=== PATIENT | male | born 1965 | race Caucasian/White ===

== ENCOUNTER 2019-02-28 12:40 | Observation (INO) ==
[2019-02-28 13:20] LABS: Hematocrit (blood only) 41.8 % (42-52); Hemoglobin 14.3 g/dL (14.0-18.0); Immature Granulocytes # (auto) 0.02 K/uL (0.00-0.02); Immature Granulocytes % (auto) 0.1 %; Lymphocytes # (auto) 1.02 K/uL (1.2-3.4); Lymphocytes % (auto) 7.5 %; Mean Corpuscular Hgb Conc 34.2 g/dL (32-36); Mean Corpuscular Volume 89.3 fL (80-100); Mean Platelet Volume 9.5 fL (7.4-10.4); Monocytes # (auto) 0.77 K/uL (0.11-0.59); Monocytes % (auto) 5.7 %; Neutrophils # (auto) 11.73 K/uL (1.4-6.5); Neutrophils % (auto) 86.7 %; Platelet Count 220 K/uL (130-400); RDW Coefficient of Variation 13.2 % (11.5-14.5); RDW Standard Deviation 43.2 fL (36.4-46.3); Red Blood Count 4.68 M/uL (4.7-6.1); White Blood Count 13.54 K/uL (4.8-10.8)
[2019-02-28 13:35] LABS: Albumin Level 3.9 gm/dl (3.4-5.0); BUN Creatinine Ratio 25.2 (10-20); Calcium 9.1 mg/dl (8.5-10.1); Est GFR (African American) 118.7; Est GFR (Non-African American) 102.4; Potassium 4.3 mmol/L (3.5-5.1)
[2019-02-28 13:37] LABS: Albumin Globulin Ratio 1.2 (0.9-2); Bilirubin,Total 0.6 mg/dl (0.2-1); Globulin 3.3 gm/dl (2.5-4.0); Total Protein 7.2 gm/dl (6.4-8.2)
[2019-02-28] MEDS ORDERED: SODIUM CHLORIDE 0.9% 1000ML 1,000 ML IV ONE (13:44)
[2019-02-28] MEDS ORDERED: cefOXitin 2,000 MG/60 ML BAG IV STA (13:44)
--- NOTE | 2019-02-28 14:12 | Anesthesiology Consultation ---
Date of Service February 28, 2019 Assessment & Plan Chart Review Chart Review: Acceptable Risk for Surgery and Patient NOT seen in Pre Admission Testing Consults Requested none ASA ASA2E Proposed Anesthesia Anesthesia Type: General Risk / Benefits Reviewed With: PT / POA / Parent / Guardian, Accepts Plan and Informed Consent Obtained History Surgery Operation Date: 02/28/19 15:15 Proposed Procedures p Laparoscopic Appendectomy - Ramon Delatorre MD Height/Weight Height: 1.78 m Weight: 77 kg Allergies Allergy/AdvReac Type Severity Reaction Status Date / Time No Known Allergies Allergy Mild Unverified 02/28/19 13:28 Medications Home Medications Medication Instructions Recorded Confirmed Last Taken No Known Home Medications 02/28/19 02/28/19 Unknown NPO Date Last Intake of Fluids: 02/27/19 Time Last Intake of Fluids: 23:00 Last Intake of Fluids Comment: CT contrast @ 11am today Date Last Intake of Solids: 02/27/19 Time Last Intake of Solids: 23:00 Past Medical History Medical History No known health problems Exercise / Class Metabolic Activity II 4-5 Yardwork/Stairs/Walk up hill Past Family History Family History Other No significant family history Past Surgical History Surgical History H/O dental orthodoxy H/O knee surgery Patella repair on the right S/P vasectomy Past Anesthesia History No Hx of Anesthesia Complications and No Family Hx of Anesthesia Complications History of PONV No Hx of PONV and No Hx of Motion Sickness Social History Smoking Status: Never smoker Do You Dip or Chew Tobacco: No Hx Alcohol Use: Yes Alcohol type: beer alcohol intake frequency: a few times a week Hx Substance Use: No Review of Systems Respiratory: no cough and no dyspnea Cardiovascular: no chest pain and no dyspnea on exertion Gastrointestinal: + nausea and + vomiting; no heartburn Physical Exam Vital Signs Last Vital Signs Temp 36.7 C 02/28/19 12:48 Pulse 63 02/28/19 14:38 Resp 19 02/28/19 14:38 BP 101/65 02/28/19 14:38 Pulse Ox 96 02/28/19 14:00 ENMT Mouth: no TMJ abnormality and no TMJ clicking Thyromental Distance: > or= 3.5 Finger Breadths Mallampati Class: II Mouth / Teeth: 1. Broken Neck normal visual inspection; neck extension not limited Respiratory Auscultation: lungs clear to auscultation bilaterally Cardiovascular Rate/Rhythm: regular rate and regular rhythm Psychiatric Orientation: alert and oriented x 3 Testing Laboratory Results 02/28/19 13:07 02/28/19 13:07 Urine Color Yellow 02/28/19 14:15 Urine Appearance Clear (Clear) 02/28/19 14:15 Urine pH 7.5 (4.5-7.5) 02/28/19 14:15 Ur Specific [place] > 1.045 (1.000-1.030) H 02/28/19 14:15 Urine Protein Negative (Negative) 02/28/19 14:15 Urine Glucose (UA) Negative (Negative) 02/28/19 14:15 Urine Ketones Negative (Negative) 02/28/19 14:15 Urine Nitrite Negative (Negative) 02/28/19 14:15 Ur Leukocyte Esterase Negative (Negative) 02/28/19 14:15
[2019-02-28] MEDS ORDERED: cefOXitin 2,000 MG in DEXTROSE 5% 50 ML IV STA (14:17)
--- NOTE | 2019-02-28 14:17 | Surgery Consultation ---
Date of Consultation February 28, 2019 Assessment & Plan (1) Appendicitis: pt is a 53 year-old male who presents to ER with one day history acute abdominal pain, CT scan dx acute appendicitis Plan, I recommend to do laparoscopic appendectomy, possible open, D/W benefits, risks nad alternatives of the surgery, the risks - infection, bleeding, abscess, injury bowel, SC, DVT, , pt understood, he agrees with the surgery, I answered all questions, History of Present Illness History of Present Illness CC: abdominal pain HPI: pt is a 53 year-old male who presents to ER with one day history abdominal pain with nausea , the pain is located at RLQ area, pt denies fever, no diarrhea, pt had CT scan at outside hospital. Dx acute appendicitis, Allergies Allergy/AdvReac Type Severity Reaction Status Date / Time No Known Allergies Allergy Mild Unverified 02/28/19 13:28 Home Medications Home Medications Medication Instructions Recorded Confirmed Type No Known Home Medications 02/28/19 02/28/19 History Patient History Medical History No known health problems Family History Other No significant family history Social History marital status: Current Living Situation: Spouse current occupational status: employed Feels Safe at Home: Yes Smoking Status: Never smoker Review of Systems Constitutional: as per Subjective / HPI Ear, Nose, Mouth, Throat: as per Subjective / HPI Respiratory: as per Subjective / HPI Cardiovascular: as per Subjective / HPI Gastrointestinal: as per Subjective / HPI Genitourinary: + as per Subjective / HPI Integumentary: as per Subjective / HPI Neurologic: as per Subjective / HPI Psychiatric: as per Subjective / HPI Endocrine: as per Subjective / HPI Hematologic / Lymphatic: as per Subjective / HPI Physical Exam Constitutional: WD/WN, vitals as above well developed and well nourished ENMT: external ear and nose normal, oropharynx normal Neck: trachea midline, no thyromegaly Respiratory: normal respiratory effort, lungs clear to auscultation normal respiratory effort Cardiovascular: RRR, no murmur, no edema Rate/Rhythm: regular rate and regular rhythm Heart Sounds: normal S1 and normal S2 Gastrointestinal (Abdomen): soft, tenderness at RLQ, no rebound pain, BS + Musculoskeletal: no cyanosis or clubbing, extremities motor strength 5/5 Neurologic: patellar DTR's 2+ bilat, sensation intact Psychiatric: A+Ox3, euthymic affect Orientation: alert and oriented x 3 Lymphatic: no cervical or axillary lymphadenopathy Results & Data Vital Signs (Past 12 Hours) Vital Signs Temp Pulse Pulse Resp BP BP Pulse Ox 02/28/19 13:20 69 24 116/66 96 02/28/19 12:48 36.7 C 71 16 109/71 96 Laboratory Results Abnormal lab results 02/28/19 02/28/19 Range/Units 13:07 13:07 WBC 13.54 H (4.8-10.8) K/uL RBC 4.68 L (4.7-6.1) M/uL Hct 41.8 L (42-52) % Neut # (Auto) 11.73 H (1.4-6.5) K/uL Lymph # (Auto) 1.02 L (1.2-3.4) K/uL [place] # (Auto) 0.77 H (0.11-0.59) K/uL BUN 21 H (7-18) mg/dl BUN/Creatinine Ratio 25.2 H (10-20) Glucose 121 H (70-99) mg/dl (1) Appendicitis Appendicitis type: unspecified Qualified Code(s): K37 - Unspecified appendicitis
--- NOTE | 2019-02-28 14:17 | History & Physical Bridge Note ---
Date of Service February 28, 2019 History & Physical Bridge Note I have examined the patient, reviewed the History & Physical and in the interval since the performance of the History & Physical I have noted the following changes of clinical significance: no changes noted
[2019-02-28] MEDS ORDERED: PROMETHAZINE HCL 12.5 MG in SODIUM CHLORIDE 0.9% 50 ML IV PRN (14:24)
[2019-02-28] MEDS ORDERED: ePHEDrine sulfate 50 MG/ML AMP IV PRN (14:24)
[2019-02-28] MEDS ORDERED: PHENYLEPHRINE 100MCG/ML 5ML SYR IV PRN (14:24)
[2019-02-28] MEDS ORDERED: fentaNYL citrate 100 MCG/2 ML VIAL IV PRN (14:24)
[2019-02-28] MEDS ORDERED: ONDANSETRON INJ 2 MG/ML 2 ML VIAL IV PRN ×2 (14:24→19:20)
[2019-02-28] MEDS ORDERED: HYDROmorphone INJ 1 MG/ML SYRINGE IV PRN ×2 (14:24→16:49)
[2019-02-28] MEDS ORDERED: ATROPINE SULFATE 0.1 MG/ML 10ML SYR IV PRN (14:24)
[2019-02-28 14:35] LABS: Appearance Urine Clear (Clear); Bilirubin Urine Negative (Negative); Blood Urine Negative (Negative); Color Urine Yellow; Glucose Urine UA Negative (Negative); Ketones Urine Negative (Negative); Leukocyte Esterase Urine Negative (Negative); Nitrite Urine Negative (Negative); Protein Urine Negative (Negative); Specific Gravity Urine > 1.045 (1.000-1.030); Urobilinogen Urine Negative (Negative); pH Urine 7.5 (4.5-7.5)
[2019-02-28] MEDS ORDERED: BUPIVACAINE 0.5 % 5 MG/1 ML MPF 30ML VIAL ONE (14:39)
[2019-02-28] MEDS ORDERED: BACITRACIN OINT 15 GM TUBE ONE (14:39)
[2019-02-28] MEDS ORDERED: LIDOCAINE HCL 1% 20 ML VIAL ONE (14:39)
[2019-02-28] MEDS ORDERED: ROCURONIUM BROMIDE 10 MG/ML 5 ML VIAL ONE (14:54)
[2019-02-28] MEDS ORDERED: PROPOFOL IV EMULSION 10 MG/ML 20 ML VIAL IV ONE (14:54)
[2019-02-28] MEDS ORDERED: MIDAZOLAM HCL 1 MG/ML 2ML VIAL ONE (14:54)
[2019-02-28] MEDS ORDERED: fentaNYL citrate 100 MCG/2 ML VIAL ONE (14:54)
[2019-02-28] MEDS ORDERED: LIDOCAINE HCL 2% 2 ML VIAL/AMP(20MG/ML) INFIL ONE (14:54)
[2019-02-28] MEDS ORDERED: GLYCOPYRROLATE 0.2 MG/ML VIAL ONE (15:41)
[2019-02-28] MEDS ORDERED: ONDANSETRON INJ 2 MG/ML 2 ML VIAL ONE ×2 (15:41→16:11)
[2019-02-28] MEDS ORDERED: NEOSTIGMINE METHYLSULFATE 5 MG/5 ML SYR ONE (15:41)
[2019-02-28] MEDS ORDERED: DEXAMETHASONE SOD INJ 4 MG/ML VIAL ONE (15:41)
[2019-02-28] MEDS ORDERED: KETOROLAC 30 MG/ML VIAL ONE (16:13)
--- NOTE | 2019-02-28 16:22 | Post Operative Brief Note ---
Immediate Post Op Note v1 Date of Surgery February 28, 2019 Pre & Post Diagnosis Operation Date: 02/28/19 15:15 Pre-Op Diagnosis: Acute appendicitis Post-Op Diagnosis: Acute appendicitis Procedure Operation Date: 02/28/19 15:15 Actual Procedures p Laparoscopic Appendectomy(Not Applicable) - Ramon Delatorre MD Surgeon Ramon Delatorre MD [employer] surgical services coordinator Estimated Blood Loss 5 Findings Consistent with Post-Op Diagnosis acute appendicitis Fluids 600ml Specimens appendix Drains Mims Catheter (mims inserted by Laura Grider RN without difficulty preop and returned postop per surgeon output monitored by anesthesia ) Anesthesia Type General Complications none Disposition Accompanied Patient To Recovery: Yes Disposition: Recovery Room Overlapping Procedure I was immediately available: during the entire case.
[2019-02-28] MEDS ORDERED: OXYCODONE/ACETAMINOPHEN 5mg/325mg TAB PO PRN (16:49)
--- NOTE | 2019-02-28 18:06 | Anesthesiology Progress Note ---
Date of Service February 28, 2019 Anesthesia Post Procedure Vital Signs Vital Signs: Temp Pulse Pulse Pulse Resp BP BP 02/28/19 18:01 36.4 C L 69 16 115/74 02/28/19 17:15 52 L 16 112/68 02/28/19 17:05 36.5 C 52 L 16 108/67 02/28/19 16:55 54 L 16 109/72 02/28/19 16:45 53 L 16 121/71 02/28/19 16:37 36.0 C L 57 L 16 110/76 02/28/19 14:54 36.8 C 57 L 16 98/66 L 02/28/19 14:38 63 19 101/65 02/28/19 14:00 62 20 103/65 02/28/19 13:31 72 25 H 100/62 02/28/19 13:20 69 24 116/66 02/28/19 12:48 36.7 C 71 16 109/71 Pulse Ox 02/28/19 18:01 97 02/28/19 17:15 96 02/28/19 17:05 97 02/28/19 16:55 97 02/28/19 16:45 100 02/28/19 16:37 98 02/28/19 14:54 97 02/28/19 14:38 02/28/19 14:00 96 02/28/19 13:31 98 02/28/19 13:20 96 02/28/19 12:48 96 Pain Intensity Right Lower Abdomen: Pain Intensity: 4 Transfer of Care Handoff Completed per policy Notes Mental Status: alert / awake / arousable and participated in evaluation Patient Amnestic to Procedure: Yes Nausea / Vomiting: adequately controlled Pain: adequately controlled Airway Patency, RR, SpO2: stable & adequate BP & HR: stable & adequate Hydration State: stable & adequate Anesthetic Complications: no major complications apparent and Pt Satisfied with anesthetic care
--- NOTE | 2019-02-28 19:48 | Emergency Department Note ---
Entered by Tierra Prather acting as a scribe for History of Present Illness General Chief complaint: Abdominal Pain Stated complaint: ABD PAIN Source: patient History of Present Illness Onset (ago): hour(s) (14.5) Location: abdomen Pain Consistency: + other (episode) Maximum Pain Intensity: 5 Quality: + other (appendicitis) Associated symptoms: + denies other symptoms (abnormal bowel movements) and + nausea/vomiting The patient is a 53 year old male who presents to the ED with complaints of an episode of abdominal pain starting 14.5 hours ago. The patient states that he started having pain in his right lower abdomen. He reports that 10.5 hours ago he started having nausea and vomiting. He states that it continued to get worse and so he went to Dr. Poole office this morning. He reports that they did an outpatient CT that showed appendicitis and they sent him here. He reports that he last ate and drank 14.5 hours ago. The patient denies abnormal bowel movements and a history of abdominal surgeries. Home Medications Home Medications Medication Instructions Recorded Confirmed Type No Known Home Medications 02/28/19 02/28/19 History Allergies Allergy/AdvReac Type Severity Reaction Status Date / Time No Known Allergies Allergy Mild Unverified 02/28/19 13:28 Past Med/Surg History Medical History No known health problems Surgical History H/O dental pentecostalism H/O knee surgery Patella repair on the right S/P vasectomy Family History Other No significant family history Social History Preferred Language: Gabonese Communication Ability: Effective Salon Shampoo Assistant Required: No Beliefs That Will Affect Care: Congregation Congregation Beliefs: Gnosticism marital status: Current Living Situation: Family current occupational status: employed Other Information That Helps Us Care for You: No Feels Safe at Home: Yes Safety Concerns: Feels Safe At This Time Smoking Status: Never smoker Do You Dip or Chew Tobacco: No Hx Alcohol Use: Yes Alcohol type: beer Hx Substance Use: No Review of Systems See HPI for pertinent positives & negatives. and A total of 10 systems reviewed and were otherwise negative Physical Exam Vital Signs Vital Signs - 24 hr 02/28/19 12:48 02/28/19 13:20 02/28/19 13:31 Temperature 36.7 C Temperature Source Oral Sepsis Recent Fever Within 48 Hours No Sepsis Action Taken by Nursing No Action Required Pulse Rate 71 72 Pulse Rate [Apical] 69 Pulse Rate [Right Finger] Pulse Rate from SpO2 Sensor 72 Pulse Rhythm [Apical] Pulse Rhythm [Right Finger] Pulse Strength [Right Finger] Respiratory Rate 16 24 25 H Respiratory Effort / Characteristics Non-Labored Spontaneous Respiratory Depth Normal Respiratory Pattern Regular Blood Pressure 109/71 100/62 Blood Pressure [Left Arm] 116/66 Blood Pressure Mean 83 74 Blood Pressure Mean [Left Arm] 82 Blood Pressure Position [Left Arm] Pulse Oximetry 96 96 98 Oxygen Delivery Method Room Air Room Air Room Air Oxygen Flow Rate 02/28/19 14:00 02/28/19 14:38 02/28/19 14:54 Temperature 36.8 C Temperature Source Oral Sepsis Recent Fever Within 48 Hours Sepsis Action Taken by Nursing Pulse Rate 62 Pulse Rate [Apical] 63 Pulse Rate [Right Finger] 57 L Pulse Rate from SpO2 Sensor 61 Pulse Rhythm [Apical] Pulse Rhythm [Right Finger] Regular Pulse Strength [Right Finger] Normal Respiratory Rate 20 19 16 Respiratory Effort / Characteristics Non-Labored Spontaneous Normal for Patient Respiratory Depth Normal Respiratory Pattern Regular Blood Pressure 103/65 Blood Pressure [Left Arm] 101/65 98/66 L Blood Pressure Mean 77 Blood Pressure Mean [Left Arm] 77 76 Blood Pressure Position [Left Arm] Sitting Pulse Oximetry 96 97 Oxygen Delivery Method Room Air Room Air Oxygen Flow Rate 02/28/19 16:37 Temperature 36.0 C L Temperature Source Temporal Artery Scan Sepsis Recent Fever Within 48 Hours Sepsis Action Taken by Nursing Pulse Rate Pulse Rate [Apical] 57 L Pulse Rate [Right Finger] Pulse Rate from SpO2 Sensor Pulse Rhythm [Apical] Regular Pulse Rhythm [Right Finger] Pulse Strength [Right Finger] Respiratory Rate 16 Respiratory Effort / Characteristics Non-Labored Respiratory Depth Normal Respiratory Pattern Regular Blood Pressure Blood Pressure [Left Arm] 110/76 Blood Pressure Mean Blood Pressure Mean [Left Arm] 87 Blood Pressure Position [Left Arm] Semi-fowlers Pulse Oximetry 98 Oxygen Delivery Method Oxymask Oxygen Flow Rate 5 GENERAL: sitting up in bed, alert, well appearing, well nourished, no distress, non-toxic EYE EXAM: normal conjunctiva OROPHARYNX: no exudate, no erythema, lips, buccal mucosa, and tongue normal and mucous membranes are moist NECK: supple, no nuchal rigidity, no adenopathy, non-tender LUNGS: Clear to auscultation. Normal chest wall mechanics HEART: no murmurs, S1 normal and S2 normal ABDOMEN: abdomen soft, tenderness to palpation in right lower quadrant, normo- active bowel sounds, no masses, no rebound or guarding. BACK: Back is symmetrical on inspection and there is no deformity, no midline tenderness, no CVA tenderness. SKIN: no rashes and no bruising UPPER EXTREMITIES: upper extremities are grossly normal. LOWER EXTREMITIES: No pitting edema. NEURO EXAM: Normal sensorium, cranial nerves II-XII grossly intact, normal speech, no gross weakness of arms, no gross weakness of legs. Course ED COURSE: Vital signs were reviewed and showed that they were normal. The patients medical record was reviewed The above diagnostic studies were performed and reviewed. ED treatments and interventions as stated above. 1330: The patient was evaluated in room B6. A complete history and physical examination was performed. I discussed my findings with the patient and he understands and agrees with the treatment plan. Based on the patients age, coexisting illnesses, exam and lab findings the decision to treat as an inpatient was made. The patient remained stable while under my care. The patient will be evaluated for further management. 1337: I discussed the patient's case with Dr. Delatorre- General Surgeon. He will evaluate the patient for further management. 1341: I reviewed the patient's records from [facility]. The patient CT ABD/PELVIS W IV AND W ORAL CONTRAST 02/28/2019 showed the following: Dilated, inflamed appendix with associated inflammatory changes in the surroundi ng fat in the right lower quadrant consistent with appendicitis. No evidence of bowel obstruction or abscess or pneumoperitoneum. Read by Dr. Simon. Consultations Consultation #1: I discussed the patient's case with Dr. Delatorre- General Surgeon. He will evaluate the patient for further management. Time: 13:37 Administered Medications Discontinued Medications Bacitracin (Bacitracin) Confirm Administered Dose 45 appln .ROUTE .STK-MED ONE Stop: 02/28/19 14:40 Last Admin: 02/28/19 16:15 Dose: 45 appln Documented by: [id number] Bupivacaine HCl (Marcaine 0.5% Mpf) Confirm Administered Dose 30 ml .ROUTE .STK- MED ONE Stop: 02/28/19 14:40 Last Admin: 02/28/19 16:16 Dose: 20 ml Documented by: [id number] Sodium Chloride (Nss 1000ml) 1,000 mls @ 999 mls/hr IV .Q1H1M ONE Stop: 02/28/19 14:44 Last Admin: 02/28/19 14:06 Dose: 999 mls/hr Documented by: [id number] Cefoxitin Sodium (Mefoxin) 2,000 mg in 60 mls @ 100 mls/hr IV NOW STA Stop: 02/28/19 14:19 Last Infusion: 02/28/19 14:42 Dose: 0 mls/hr Documented by: [id number] Admin: 02/28/19 14:06 Dose: 100 mls/hr Documented by: [id number] Lidocaine HCl (Xylocaine 1% (Local)) Confirm Administered Dose 20 ml .ROUTE .STK-MED ONE Stop: 02/28/19 14:40 Last Admin: 02/28/19 16:17 Dose: 20 ml Documented by: [id number] Medical Decision Making Differential Diagnosis Differential diagnoses includes but is not limited to gastritis, peptic ulcer disease, GERD, gallbladder disease, pancreatitis, small bowel obstruction, acute coronary syndrome, pericarditis, ischemic bowel, irritable bowel disease, irritable bowel syndrome, appendicitis, diverticulitis, malignancy, hernia, urinary tract infection, torsion, perforation, trauma, infectious. Medical Records Attestation: I reviewed the patient's medical records. Home Medications Current Medication List: was personally reviewed by me Laboratory Data Attestation: I reviewed the patient's lab results. Result diagrams: 02/28/19 13:07 02/28/19 13:07 Lab Results 02/28/19 02/28/19 02/28/19 Range/Units 13:07 13:07 14:15 WBC 13.54 H (4.8-10.8) K/uL RBC 4.68 L (4.7-6.1) M/uL Hgb 14.3 (14.0-18.0) g/dL Hct 41.8 L (42-52) % MCV 89.3 (80-100) fL MCH 30.6 (25-34) pg MCHC 34.2 (32-36) g/dL RDW Std Deviation 43.2 (36.4-46.3) fL RDW Coeff of Ramon 13.2 (11.5-14.5) % Plt Count 220 (130-400) K/uL MPV 9.5 (7.4-10.4) fL Immature Gran % (Auto) 0.1 % Neut % (Auto) 86.7 % Lymph % (Auto) 7.5 % [place] % (Auto) 5.7 % Eos % (Auto) 0.0 % Baso % (Auto) 0.0 % Immature Gran # (Auto) 0.02 (0.00-0.02) K/uL Neut # (Auto) 11.73 H (1.4-6.5) K/uL Lymph # (Auto) 1.02 L (1.2-3.4) K/uL [place] # (Auto) 0.77 H (0.11-0.59) K/uL Eos # (Auto) 0.00 (0-0.5) K/uL Baso # (Auto) 0.00 (0-0.2) K/uL Sodium 138 (136-145) mmol/L Potassium 4.3 (3.5-5.1) mmol/L Chloride 103 (98-107) mmol/L Carbon Dioxide 29 (21-32) mmol/L Anion Gap 6.0 (3-11) BUN 21 H (7-18) mg/dl Creatinine 0.82 (0.6-1.4) mg/dl Est Cr Clr Drug Dosing 110.0 ml/min Est GFR ( Amer) 118.7 Est GFR (Non-Af Amer) 102.4 BUN/Creatinine Ratio 25.2 H (10-20) Glucose 121 H (70-99) mg/dl Calcium 9.1 (8.5-10.1) mg/dl Total Bilirubin 0.6 (0.2-1) mg/dl AST 20 (15-37) U/L ALT 38 (12-78) U/L Alkaline Phosphatase 49 (45-117) U/L Total Protein 7.2 (6.4-8.2) gm/dl Albumin 3.9 (3.4-5.0) gm/dl Globulin 3.3 (2.5-4.0) gm/dl Albumin/Globulin Ratio 1.2 (0.9-2) Lipase 111 (73-393) U/L Urine Color Yellow Urine Appearance Clear (Clear) Urine pH 7.5 (4.5-7.5) Ur Specific [place] > 1.045 H (1.000-1.030) Urine Protein Negative (Negative) Urine Glucose (UA) Negative (Negative) Urine Ketones Negative (Negative) Urine Blood Negative (Negative) Urine Nitrite Negative (Negative) Urine Bilirubin Negative (Negative) Urine Urobilinogen Negative (Negative) Ur Leukocyte Esterase Negative (Negative) Blood Pressure Blood Pressure Findings: Normal blood pressure Blood Pressure Disposition: did not require urgent referral MDM Narrative Patient is a 53-year-old male who presents the ER for right lower quadrant abdominal pain. CT showed acute appendicitis. Following my initial evaluation discussed with general surgery who evaluated him immediately at bedside. I did order IV fluids and IV cefoxitin 2 g. Patient declined any pain medications. He was updated bedside. He has been n.p.o. since the morning. Patient will go to the OR for acute appendicitis. Labs were remarkable for leukocytosis of 13,000. BMP along with LFTs bilirubin and lipase is unremarkable. UA was negative. Impression & Plan Appendicitis Discharge Plan Visit Data Chief Complaint: Abdominal Pain Stated Complaint: ABD PAIN ED Provider: Eb Miller Discharge Problem: Appendicitis Patient Disposition: Being Evaluated by Surgeon Discharge Instructions Interventions: ED Discharge Assessment Last Done: 02/28/19 14:48 Discharge Problem: Appendicitis Qualifiers: Appendicitis type: unspecified Qualified Code(s): K37 - Unspecified ap pendicitis The scribe's documentation has been prepared under my direction and personally reviewed by me in its entirety. I confirm that the note above accurately reflects all work, treatment, procedures, and medical decision making performed by me.
[2019-02-28] MEDS: LACTATED RINGER'S 1,000 ML IV SCH (23:02)
--- NOTE | 2019-02-28 23:07 | Operative Report ---
DATE OF OPERATION: 02/28/2019 PREOPERATIVE DIAGNOSIS: Acute appendicitis. POSTOPERATIVE DIAGNOSIS: Acute appendicitis. PROCEDURE: Laparoscopic appendectomy. SURGEON: Ramon Delatorre MD. ANESTHESIA: General. ESTIMATED BLOOD LOSS: 5 mL. FINDINGS: Acute appendicitis. COMPLICATIONS: None. INDICATIONS FOR THE PROCEDURE: This is a 53-year-old gentleman who presented to the ED with 1 day history of abdominal pain. The patient had a CT scan at outside hospital, diagnosed as acute appendicitis. I recommended to do a laparoscopic appendectomy, possible open. I did talk to the patient about the benefit and risk, alternate procedure. I indicated the risks may include but not limited such as bleeding, infection, injury to the bowel, abscess, myocardial infarction, DVT, stroke, even . The patient understands. He signed informed consent and I answered all questions. DETAILS OF PROCEDURE: We brought the patient to the OR, put the patient in the supine position. The patient received SCD on bilateral legs to prevent DVT and also the patient received 2 grams cefoxitin IV for prophylactic antibiotic. The patient received general anesthesia without difficulty. The abdomen was prepped and draped in routine sterile fashion. Also, the patient received Vora catheter before we started the procedure. After time out, I injected local anesthesia by using 1% lidocaine mixed with 0.5% Marcaine just above umbilicus, then I made a small incision just above umbilicus, opened fascia and opened peritoneum under direct vision, put a [place] trocar in, connected to CO2 to create pneumoperitoneum. Flow rate at 6 liter per minute. Pressure not more than 14 mmHg. Once we got a nice pneumoperitoneum, we put the camera in, looked around the abdomen, showed normal finding on the small bowel, large bowel. The appendix was a large size about near 1 cm in diameter and inflammation, diagnosis confirmed acute appendicitis. Then, we put another two 5 mm trocar on the left lower quadrant area. Once all trocars in, we used a harmonic to take down the appendiceal, rechecked, no active bleeding and then we used 45 mm Endo-LAURA staple transection on the base of the appendix, rechecked the staple line intact. No leak and no active bleeding. Then we removed the appendix through the catch bag then we reinserted Maliha trocar and connected to CO2 to create pneumoperitoneum again and we found the staple line. There was a little bit of bleeding. We chose a 5 mm metal clip to clip the staple line and stop the bleeding and no more bleeding. Then we removed all trocar under direct vision. No active bleeding from the trocar sites. Pneumoperitoneum was released, closed the umbilical incision, fascial layer by using #1 Vicryl [id number] x2, closed subcutaneous layer by using 2-0 Vicryl interruptedly, closed skin by using 4-0 Vicryl continuous running, closed another two 5 mm trocar site skin only by using 4-0 Vicryl. Then we put the dressing on. The patient tolerated the procedure well. All instrument, needle and sponge count were correct x2 at the end of case. The patient transferred to recovery room in stable condition. After the procedure, I did talk to the patient's family member about the OR finding and procedure we did and she understands. I attest to the content of the Intraoperative Record and any orders documented therein. Any exception s are noted below.
[2019-03-01 08:17] LABS: Basophils # (auto) 0.01 K/uL (0-0.2); Basophils % (auto) 0.1 %; Hematocrit (blood only) 37.2 % (42-52); Hemoglobin 12.6 g/dL (14.0-18.0); Immature Granulocytes # (auto) 0.02 K/uL (0.00-0.02); Immature Granulocytes % (auto) 0.2 %; Lymphocytes # (auto) 1.23 K/uL (1.2-3.4); Lymphocytes % (auto) 11.8 %; Mean Corpuscular Hgb Conc 33.9 g/dL (32-36); Mean Corpuscular Volume 88.4 fL (80-100); Monocytes % (auto) 8.6 %; Neutrophils # (auto) 8.29 K/uL (1.4-6.5); Neutrophils % (auto) 79.3 %; Platelet Count 215 K/uL (130-400); RDW Coefficient of Variation 13.6 % (11.5-14.5); RDW Standard Deviation 43.8 fL (36.4-46.3); Red Blood Count 4.21 M/uL (4.7-6.1); White Blood Count 10.45 K/uL (4.8-10.8)
[2019-03-01] MEDS: LACTATED RINGER'S 1,000 ML IV SCH (09:48)
--- NOTE | 2019-03-01 10:33 | Surgery Progress Note ---
Date of Service pt is doing fine, no abdominal pain, he tolerated diet, no nausea, no vomiting, March 01, 2019 Assessment & Plan (1) Appendicitis: pt is a 53 year-old male who presents to ER with one day history acute abdominal pain, CT scan dx acute appendicitis Plan, I recommend to do laparoscopic appendectomy, possible open, D/W benefits, risks nad alternatives of the surgery, the risks - infection, bleeding, abscess, injury bowel, GA, DVT, , pt understood, he agrees with the surgery, I answered all questions, 03/01/2019, 10:31am S/P laparosocpic appendectomy, POD 1 pt is doing fine, pt wants to go home today, the post-op care instruction was given, F/U in 1-2 weeks, Physical Exam Constitutional: WD/WN, vitals as above well developed and well nourished ENMT: external ear and nose normal, oropharynx normal Neck: trachea midline, no thyromegaly Respiratory: normal respiratory effort, lungs clear to auscultation normal respiratory effort Cardiovascular: RRR, no murmur, no edema Rate/Rhythm: regular rate and regular rhythm Heart Sounds: normal S1 and normal S2 Gastrointestinal (Abdomen): Percussion/Palpation: abdomen soft NT, ND all incisions intact, no redness, Musculoskeletal: no cyanosis or clubbing, extremities motor strength 5/5 Neurologic: patellar DTR's 2+ bilat, sensation intact Psychiatric: A+Ox3, euthymic affect Orientation: alert and oriented x 3 Lymphatic: no cervical or axillary lymphadenopathy Results & Data Vital Signs (Past 12 Hours) Vital Signs Temp Pulse Resp BP Pulse Ox 03/01/19 07:03 36.9 C 63 18 110/61 97 03/01/19 03:26 36.9 C 64 16 96/59 L 95 02/28/19 23:35 37.0 C 68 15 99/62 L 94 Laboratory Results Abnormal lab results 02/28/19 02/28/19 02/28/19 Range/Units 13:07 13:07 14:15 WBC 13.54 H (4.8-10.8) K/uL RBC 4.68 L (4.7-6.1) M/uL Hgb (14.0-18.0) g/dL Hct 41.8 L (42-52) % Neut # (Auto) 11.73 H (1.4-6.5) K/uL Lymph # (Auto) 1.02 L (1.2-3.4) K/uL [place] # (Auto) 0.77 H (0.11-0.59) K/uL BUN 21 H (7-18) mg/dl BUN/Creatinine Ratio 25.2 H (10-20) Glucose 121 H (70-99) mg/dl Ur Specific [place] > 1.045 H (1.000-1.030) 03/01/19 Range/Units 08:00 WBC (4.8-10.8) K/uL RBC 4.21 L (4.7-6.1) M/uL Hgb 12.6 L (14.0-18.0) g/dL Hct 37.2 L (42-52) % Neut # (Auto) 8.29 H (1.4-6.5) K/uL Lymph # (Auto) (1.2-3.4) K/uL [place] # (Auto) 0.90 H (0.11-0.59) K/uL BUN (7-18) mg/dl BUN/Creatinine Ratio (10-20) Glucose (70-99) mg/dl Ur Specific [place] (1.000-1.030) (1) Appendicitis Appendicitis type: unspecified Qualified Code(s): K37 - Unspecified appendicitis
--- NOTE | 2019-03-02 00:35 | Discharge Summary ---
DATE OF ADMISSION: 02/28/2019 DATE OF DISCHARGE: 03/01/2019 ADMITTING DIAGNOSIS: Acute appendicitis. DISCHARGE DIAGNOSIS: Acute appendicitis. OPERATION: Laparoscopic appendectomy. SURGEON: Ramon Delatorre MD DETAILS OF DISCHARGE SUMMARY: This is a 53-year-old gentleman who presented to ED with 1 day history of abdominal pain. The patient had a CT scan diagnosis of acute appendicitis. We took the patient to the OR. We did a laparoscopic appendectomy. The patient tolerated the procedure well. After procedure, the patient transferred to his regular floor room. The patient is doing fine. He tolerated his diet. No nausea, no vomiting, no significant abdominal pain. The patient wanted to go home today. PHYSICAL EXAMINATION: VITAL SIGNS: Temperature is 36.9, heart rate is 63, respiratory rate 18, blood pressure is 110/61, O2 saturation 97% on room air. GENERAL: The patient is alert, awake, oriented x3. HEENT: With normal limitation. NEUROLOGIC: Exam intact. NECK: No JVD. CHEST: Bilateral lung sounds clear. HEART: Normal S1, S2. No murmur. ABDOMEN: Soft, nondistended, no tenderness. All dressing intact. No redness. EXTREMITIES: No edema. PLAN: The patient wanted to go home today. I gave patient postop care instructions. The patient understands. I will follow up the patient in 1-2 weeks.
== END 2019-03-01 12:00 | disposition home or self-care (01) ==
LOC: ED 12:40 → ASU 14:48 → 3W 14:48
DX: K35.80 Unspecified acute appendicitis